=== PATIENT | female | born 1950 | race Caucasian/White ===

== ENCOUNTER 2018-05-14 10:27 | Emergency (ER) | payer BC, MEDICAID ==
[~2018-05-14] VITALS: Ht 165.1 cm; Wt 59.0 kg
[~2018-05-14 10:27] MED LIST: ACETTAB85 PO; CEPH250C PO; SILV1CRE82 TOP
[2018-05-14 11:07] VITALS: BP 159/100
[2018-05-14] MEDS ORDERED: cefTRIAXone SOD 1,000 MG VL IM ONE (11:15)
[2018-05-14] MEDS ORDERED: LIDOCAINE 1% (LOCAL ANESTH.) PF 5ml SDV ONE (11:20)
== END 2018-05-14 11:37 | disposition home or self-care (01) ==
LOC: ER 10:27
DX: K04.7 Periapical abscess without sinus (principal); F17.210 Nicotine dependence, cigarettes, uncomplicated
CPT/HCPCS: 96372; 99283; J0696

== ENCOUNTER 2024-04-25 14:34 | Emergency (ER) | payer BC, MEDICAID ==
[~2024-04-25] VITALS: Ht 165.1 cm; Wt 72.7 kg
[~2024-04-25 14:34] MED LIST changes: +ACET-1603 PO; -ACETTAB85 PO
[2024-04-25 14:54] VITALS: BP 116/60; PULSE 78; RESP 14; TEMP 98.3; O2SAT 96
[2024-04-25 15:35] LABS: Basophils # (auto) 0 10 ^3/uL (0-0.2); Basophils % (auto) 0.7 % (0.0-2.0); Eosinophils # (auto) 0.1 10 ^3/uL (0-0.8); Eosinophils % (auto) 1.6 % (0.0-7.0); Hematocrit 39.8 % (36.0-46.0); Hemoglobin 13.4 g/dL (12.2-16.2); Lymphocytes # (auto) 2.3 10 ^3/uL (0.4-5.4); Lymphocytes % (auto) 41.6 % (10.0-50.0); Mean Corpuscular Hgb Conc. 33.6 g/dL (32.0-36.0); Mean Corpuscular Volume 98.1 fL (80.0-100.0); Monocytes # (auto) 0.5 10 ^3/uL (0-1.3); Monocytes % (auto) 9.7 % (0.0-12.0); Neutrophils # (auto) 2.6 10 ^3/uL (1.6-8.6); Neutrophils % (auto) 46.4 % (37.0-80.0); Nucleated Red Blood Cells % 0.1 %; Platelet Count (auto) 234 10^3/uL (140-450); Red Blood Cells 4.05 10^6/uL (4.0-5.20); Red Cell Distribution Width 14.4 % (11.8-14.3); White Blood Cell 5.6 10^3/uL (4.4-10.8)
[2024-04-25 15:51] LABS: Alanine Aminotransferase 85 U/L (7-40); Alkaline Phosphatase 101 U/L (46-116); Anion Gap 6 (5-15); Aspartate Aminotransferase 51 U/L (13-40); BUN/Creatinine Ratio 20.7 (10.0-20.0); Blood Alcohol 124.1 mg/dL (<10); Blood Urea Nitrogen 17 mg/dL (9-23); Calcium 9.8 mg/dL (8.7-10.4); Carbon Dioxide 24 mmol/L (20-30); Chloride 112 mmol/L (98-107); Glucose 91 mg/dL (74-106); Magnesium 1.9 mg/dL (1.6-2.6); Potassium 4.2 mmol/L (3.5-5.1); Sodium 142 mmol/L (136-145)
[2024-04-25 15:52] LABS: Bilirubin, Total 0.5 mg/dL (0.2-1.0)
== END 2024-04-25 15:32 | disposition left against medical advice (07) ==
LOC: ER 14:34
DX: F10.129 Alcohol abuse with intoxication, unspecified (principal); F17.210 Nicotine dependence, cigarettes, uncomplicated; R51.9 Headache, unspecified; E78.5 Hyperlipidemia, unspecified; N18.30 Chronic kidney disease, stage 3 unspecified; Z98.890 Other specified postprocedural states; Z79.899 Other long term (current) drug therapy; Z88.8 Allergy status to other drugs, medicaments and biological substances; Z53.29 Procedure and treatment not carried out because of patient's decision for other reasons; Y90.0 Blood alcohol level of less than 20 mg/100 ml
CPT/HCPCS: 36415; 70450; 71045; 72125; 80053; 80320; 82140; 83605; 83735; 84484; 85025; 93005

== ENCOUNTER 2024-11-02 12:39 | Emergency (ER) | payer BC, MEDICAID, MEDICARE ==
[~2024-11-02] VITALS: Ht 162.6 cm; Wt 86.5 kg
[2024-11-02 12:45] VITALS: BP 153/75; PULSE 80
[2024-11-02 12:50] VITALS: RESP 18; O2SAT 98
--- NOTE | 2024-11-02 13:04 | ED.PDOC ---
SOB-HPI HPI Comments HPI: 74-year-old female with a history of COPD oxygen dependent brought in by ambulance from home for evaluation of shortness of breath. Per EMS, when they arrived home she stated that she ran out of oxygen and her oxygen tank. They placed him on 4 L nasal cannula. She typically uses 2 L nasal cannula. Her vital signs are otherwise unremarkable. Patient denies any actual pain. Patient does not appear to be in any respiratory distress. She has a strong odor of alcohol. She says she drinks as much as she can. When I 1st evaluated the patient, she voiced intentions to just walk back home right away and not complete her workup. Initial Vital Signs: Temp : 98.6F BP: 153/75 HR: 80 RR: 18 SpO2: 98% on 2L via [place] Past Medical History: COPD, CVA, [place] Past Surgical History: Denies Social History: Smokes cigarettes, heavy ETOH use, denies drug use. Medications: No medications. Allergies: NKDA HPI: Poor Historian. REVIEW OF SYSTEMS: CONSTITUTIONAL: Denies acute: fever, diaphoresis, chills, generalized weakness. HEAD: Denies acute: headache, photophobia Eyes: Denies acute: Double vision, vision loss, eye pain, eye discharge. EARS: Denies acute: tinnitus, hearing loss, ear discharge, ear pain, THROAT: Denies acute: sore throat, swelling, difficulty swallowing , pain with swallowing, change in voice. NECK: Denies acute: neck pain, neck swelling, stiff neck. HEART: Denies acute : chest pain, palpitations, LUNGS: Denies acute: wheezing, cough, hemoptysis ABDOMEN: Denies acute: abdominal pain, Nausea, Vomiting, diarrhea, melena , hematemesis, hematochezia SKIN: Denies acute: rash, redness, lesions, itchiness. EXTREMITIES: Denies acute: calf pain, numbness, tingling, weakness, denies pain in extremity. Denies acute: Low back pain. Neuro: Denies acute: focal neurological deficit, motor or sensory focal neurological deficit, tremors, seizure like activity, confusion, dizziness, change in mental status, loss of bowel or bladder function, cauda equina like symptoms. : Denies acute: dysuria, hematuria, flank pain, increase in urinary frequency. PSYCH: Denies acute: hallucination, suicidal ideation, homicidal ideation. FEMALE: Denies acute: abnormal vaginal bleeding, foul odor, unusual discharge. PHYSICAL EXAM: General: no acute distress, awake and alert. Hard of hearing. Smells like alcohol and intoxicated. Head: normocephalic, atraumatic. Neck: supple, trachea is midline, no swelling. Throat: Normal phonation. Eyes:, no erythema, no purulent discharge, no proptosis, no icterus. Heart: regular rate, regular rhythm, no significant murmur appreciated. Lungs: no apparent respiratory distress, Able to speak in full sentences. No wheezing, no rhonchi, no crackles. No stridors Clear to auscultation bilaterally. Abdomen: non tender to palpation, non distended, soft, no guarding, no rebound, + bowel sounds. Neuro: Awake, Alert, oriented to name, self, situation, follows commands GCS=15. Speech is normal. Skin: no petechia, no purpura, no cyanosis, non-pale, not jaundice. Lower extremities: --no - Pitting edema no deformity, no focal swelling, no calf TTP. Makes eye contact. moves all four extremities. Face: no apparent facial droop. Ambulating in the ED independently. ED COURSE: Chief Complaint: Shortness of Breath Time Seen by MD: 12:55 Primary Care Provider: THAO Reviewed notes: Medications, Allergies Information Source: Patient Mode of Arrival: EMS Was a procedure done? Was a procedure done?: No Differential Dx Differential Diagnosis: Other (DDx include ACS, unstable angina, anxiety, PE, pneumothroax, neoplasm, cardiac ischemia, COPD, asthma, CHF, pleural effusion, tobacco abuse, pneumonia, hypoxia, hypercapnia, anemia., infection/sepsis., pul monary edema. Asthma, Cardiac tamponade, infection.) X-Ray, Labs, Meds, VS Vital Signs Date Time Temp Pulse Resp B/P (MAP) Pulse Ox O2 Delivery O2 Flow Rate FiO2 11/02/24 12:50 18 98 Nasal Cannula* 2 28 11/02/24 12:45 98.6 80 18 153/75 (101) 98 11/02/24 12:40 81 Time of 1ST Reevaluation: 13:55 Reevaluation 1ST: Unchanged Patient Education/Counseling: Diagnosis, Treatment Family Education/Counseling: No Family Present Comments Patient presented with the above HPI.---dyspnea and alcohol abuse---workup was initiated. patient was found with the above mentioned diagnosis. the following medications were ordered: please refer to order lists of meds and tests obtained by myself Dr. Polk. Patient ED course and VS have been stabilized. Patient has been reassessed in the ED and remained in a stable condition. Patient eloped All labs and medications that were ordered for the patient were canceled. All the reports of any imaging studies that were ordered by myself were reviewed by myself. Departure 1 Departure Time of Disposition: 14:57 Impression: Primary Impression: Alcohol abuse Additional Impressions: Dyspnea Eloped from emergency department Disposition: 07 LEFT AWOL/ELOPED Condition: Guarded Additional Instructions: Patient eloped Discharged With: Self Critical Care Note Critical Care Time?: No Heart Score Heart Score: Heart Score Response (Comments) Value History Slightly Suspicious 0 EKG Normal 0 Age >65 2 Risk Factors 1 or 2 risk factors 1 Troponin N/A 0 Total 3 I personally scribed for ALTHEA POLK DO ([email or web address]) on 11/02/24 at 13:04. Electronically submitted by Alli Klein ([email or web address]). ALTHEA POLK DO Nov 02, 2024 13:04
[2024-11-02] MEDS ORDERED: methylPREDNISolone SOD SUCC 125 MG/2 ML VL IV ONE (13:45)
[2024-11-02] MEDS: ALBUTEROL SULF 2.5 MG/0.5ML(0.5%) NEB SOLN NEB ONE (14:01)
[2024-11-02] MEDS: IPRATROPIUM BROM 0.5 MG/2.5ML INH SOL NEB ONE (14:01)
--- NOTE | 2024-11-04 12:32 | ECG ---
[facility] Test Date: 2024-11-02 Test Time: 12:40:24 Pat Name: ROBBY KING Department: ER Room: Gender: F Chemist Organic: KAMRAN : 1950 Requested By: EMERGENCY EMERGENCY Order Number: [id number] Reading MD: Measurements Intervals [place] Rate: 81 P: 57 DE: 157 QRS: 12 QRSD: 91 T: 21 QT: 352 QTc: 409 Interpretive Statements Sinus rhythm Please click the below link to view image of tracing.
== END 2024-11-02 14:07 | disposition left against medical advice (07) ==
LOC: EDBD 12:39 → ER 12:39
DX: R06.00 Dyspnea, unspecified (principal); F10.10 Alcohol abuse, uncomplicated; F17.210 Nicotine dependence, cigarettes, uncomplicated; J44.9 Chronic obstructive pulmonary disease, unspecified
CPT/HCPCS: 93005